=== PATIENT | female | born 1990 | race Caucasian/White ===

== ENCOUNTER 2017-07-04 10:28 | Emergency (ER) | payer BC, OTHER ==
[2017-07-04 10:36] VITALS: BP 110/56; PULSE 102; RESP 18; TEMP 100.8; O2SAT 100
--- NOTE | 2017-07-04 10:47 | EDPHY ---
H & P Stated Complaint: sob, sore throat, congestion,cough, x 1 day sent from Time Seen by Provider: 07/04/17 10:47 - Personal History LMP (Females 10-55): Unknown - Medical/Surgical History Hx Asthma: No Hx Chronic Respiratory Disease: No Hx Diabetes: No Hx Cardiac Disease: No Hx Renal Disease: No Hx Cirrhosis: No Hx Alcoholism: No Hx HIV/AIDS: No Hx Splenectomy or Spleen Trauma: No Other PMH: celiac - Social History Smoking Status: Never smoked Constitutional: Initial Vital Signs Temperature (C) 38.2 C 07/04/17 10:32 Heart Rate 102 H 07/04/17 10:32 Respiratory Rate 18 07/04/17 10:32 Blood Pressure 110/56 L 07/04/17 10:32 O2 Sat (%) 100 07/04/17 10:32 O2 Delivery Mode Room Air Allergies/Adverse Reactions: penicillin V Allergy (Verified 07/04/17 10:31) Home Medications: Medication Instructions Recorded Albuterol [Proventil Inhaler HFA 1 - 2 puffs IH Q4H #1 mdi 07/04/17 (*)] Inhaler, Assist Devices [Space 1 each Q4H #1 spacer 07/04/17 Chamber Plus] Medical Decision Making - Diagnostics Imaging: I viewed and interpreted images myself ED Course/Re-evaluation: CHIEF COMPLAINT: Cough HISTORY OF PRESENT ILLNESS: The patient is a 27 y/o female arriving with her friend complaining of dry throat and chest congestion onset yesterday. She went to urgent care today for evaluation and was referred here. She denies throat pain, difficulty swallowing, or significant difficulty breathing. She is whispering and reluctant to talk, but denies pain with talking and does not have a hoarse voice, she just says her throat is dry. She has had an associated fever. She has no respiratory disease history. REVIEW OF SYSTEMS: A 10 point review of systems was performed and is negative with the exception of the elements mentioned in the history of present illness. PHYSICAL EXAM: HR, BP, O2 Sat, RR. Temp noted at 38.2C General Appearance: Alert, well hydrated, appropriate, and non-toxic appearing. Head: Atraumatic without scalp tenderness or obvious injury Eyes: Pupils equal, round, reactive to light and accommodation, EOMI, no trauma , no injection. Ears: Clear bilaterally, no perforation, normal landmarks Nose: Atraumatic, no rhinorrhea, clear. Throat: There is no erythema or exudates, no lesions, normal tonsils, mucus membranes moist. Neck: Supple, nontender, no lymphadenopathy. Respiratory: No retractions, no distress, no wheezes, and no accessory muscle use. Lungs are clear to auscultation bilaterally. Cardiovascular: Regular rate and rhythm, no murmurs, rubs, or gallops. Good capillary refill all extremities. Gastrointestinal: Abdomen is soft, nontender, non-distended, no masses, no rebound, no guarding, no peritoneal signs. Musculoskeletal: Normal active ROM of all extremities, atraumatic. Neurological: Alert, appropriate, and interactive. The patient has non-focal cranial nerves, motor, sensory, and cerebellar exam. Skin: No rashes, good turgor, no nodules on palpation. Past medical history: Denies Past surgical history: Denies Family history: Noncontributory Social history: Friend at bedside. DIAGNOSTICS/PROCEDURES/CRITICAL CARE TIME: Chest x-ray: normal DIFFERENTIAL DIAGNOSIS: The differential diagnosis for the patient's fever and cough included but was not limited to influenza, pneumonia, urinary tract infection, viral syndrome, meningitis, and sepsis. MEDICAL DECISION MAKING: This is a well-appearing normally healthy 27 y/o female who presents with a 1- day history of cough. Her exam is completely benign. Presentation consistent with viral infection like the flu. Chest x-ray normal. 650mg PO Tylenol given for fever. Flu swab pending, she can call back for results. Patient will bed discharged with standard viral care and follow up instructions. Script for albuterol given. She agrees to plan for discharge. - Data Points Laboratory Results: 07/04/17 10:45 Nasal Influenza A PCR Pending Nasal Influenza B PCR Pending Medications Given: Discontinued Medications Acetaminophen (Tylenol) 650 mg PO EDNOW ONE Stop: 07/04/17 10:55 Last Admin: 07/04/17 10:57 Dose: 650 mg Departure - Departure Disposition: Home, Routine, Self-Care Clinical Impression: Viral syndrome, Cough Condition: Good Instructions: Viral Syndrome (ED), Acute Cough (ED) Additional Instructions: 1. Use Tylenol and ibuprofen as directed for fever for the next few days. 2. Use inhaler as prescribed if needed for cough or shortness of breath. 3. Follow up with your primary care provider for unimproved symptoms over the next week. 4. Call the ED for your flu swab results later today. Adult Pain & Fever Control: We recommend Acetaminophen (Tylenol) and Ibuprofen (Motrin,Advil) for pain and fever control. When fever is high or pain severe, both drugs can be used at the same time, but at different intervals. Please note the time differences. Your dose is: Acetaminophen 650mg every 4 to 6 hours Ibuprofen 600mg every 6-8 hours with food Note: do not take Acetaminophen with Hydrocodone (Vicodin, Lortab) or Oxycodone (Percocet). These medications also contain Acetaminophen. No more than 3000mg of Acetaminophen should be taken in 24 hours (for an adult). Referrals: Andrew Mcclendon DO [Medical Doctor] - As per Instructions Prescriptions: Albuterol [Proventil Inhaler HFA (*)] 1 - 2 puffs IH Q4H #1 mdi Inhaler, Assist Devices [Space Chamber Plus] 1 each MC Q4H #1 spacer Report Scribed for: Rafi Wood Report Scribed by: Arcelia Obando Date of Report: 07/04/17 Time of Report: 10:58
[2017-07-04] MEDS ORDERED: ACETAMINOPHEN 325 MG TAB PO ONE (10:54)
== END 2017-07-04 11:12 | disposition home or self-care (01) ==
DX: B34.9 Viral infection, unspecified (principal)